=== PATIENT | male | born 1950 | race African-American/Black ===

== ENCOUNTER 2019-08-28 09:55 | Emergency (ER) | payer OTHER ==
[~2019-08-28] VITALS: Ht 165.1 cm; Wt 76.2 kg
[2019-08-28 10:50] LABS: HEMATOCRIT 49.9 % (42.0-52.0); HEMOGLOBIN 16.8 gm/dL (14.0-18.0); MCH 31.2 pg (26.0-34.0); MCHC 33.6 g/dL (28.0-37.0); MCV 92.9 fL (80.0-100.0); RBC 5.38 mil/uL (4.50-6.00); RDW 13.4 % (10.5-14.5); WBC 7.8 thou/uL (4.0-11.0)
[2019-08-28 10:52] LABS: PROTIME 10.6 Seconds (9.3-11.4)
[2019-08-28 10:54] LABS: CALCIUM 9.1 mg/dL (8.5-10.1); CREATININE 0.9 mg/dL (0.7-1.3)
[2019-08-28 12:59] VITALS: BP 143/82
[2019-08-28] MEDS ORDERED: NORCO 5-325 TA1 EAC1 PO (13:03)
== END 2019-08-28 14:03 | disposition home or self-care (01) ==
LOC: ER 09:55
PROVIDERS: Emergency Medicine Emergency Medical Services
DX: S82.841A Displaced bimalleolar fracture of right lower leg, initial encounter for closed fracture (principal); S82.61XA Displaced fracture of lateral malleolus of right fibula, initial encounter for closed fracture; F17.210 Nicotine dependence, cigarettes, uncomplicated; W00.0XXA Fall on same level due to ice and snow, initial encounter; Y92.89 Other specified places as the place of occurrence of the external cause; Y93.89 Activity, other specified; Y99.8 Other external cause status